=== PATIENT | male | born 1970 | race Caucasian/White ===

== ENCOUNTER 2024-03-02 15:15 | Emergency (ER) | payer OTHER, SELFPAY ==
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
[2024-03-02 16:24] VITALS: BP 147/95; PULSE 70; RESP 18; TEMP 36.9; O2SAT 98; BMI 32.5
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
[2024-03-02 17:11] VITALS: BP 143/87; PULSE 71; O2SAT 99
== END 2024-03-02 17:11 | disposition home or self-care (01) ==
PROVIDERS: Emergency Provider Emergency Medicine
DX: M25.561 Pain in right knee (principal); M25.521 Pain in right elbow
CPT/HCPCS: 73080; 73562; 99284